=== PATIENT | male | born 1975 | race Caucasian/White ===

== ENCOUNTER 2016-06-20 20:33 | Emergency (ER) | payer BC ==
[2016-06-20 21:13] VITALS: BP 153/74
[2016-06-20] MEDS ORDERED: Albuterol HFA INHALER* 8 gm MDI INH ONE (21:38)
[2016-06-20] MEDS ORDERED: Clindamycin CAP* 150 MG PO ONE (21:39)
--- NOTE | 2016-06-20 21:40 | UC ---
UC Dental HPI - HPI Summary HPI Summary: 41 YO MALE WITH LEFT LOWER DENTAL PAIN HAS NEED TOOTH PULLED X MONTHS PAST FEW DAYS INCREASED PAIN AND NOW JAW SWOLLEN NO F/C NO HX HT MURMUR HAS APPT WITH DENTIST RECENTLY MOVE HERE FROM [place] NO PMD YET OUT OF MEDS - History of Current Complaint Chief Complaint: UCGeneralIllness Stated Complaint: ASTHMA & TOOTH PAIN Time Seen by Provider: 06/20/16 21:21 Hx Obtained From: Patient Onset/Duration: Sudden Onset, Lasting Days Pain Intensity: 6 Pain Scale Used: 0-10 Numeric Aggravating: Heat, Cold, Chewing Alleviating: OTC Meds Related History: Previous Dental Care on Same Tooth - Allergies/Home Medications Allergies/Adverse Reactions: Allergies Allergy/AdvReac Type Severity Reaction Status Date / Time Penicillins Allergy Rash Verified 06/20/16 21:04 Home Medications: Home Medications Albuterol HFA INHALER* [Ventolin HFA Inhaler*] 2 puff PRN 06/20/16 [History] Budesonide/Formote 160/4.5(NF) [Symbicort 160/4.5 (NF)] 2 puff INH BID 06/20/16 [History Confirmed 06/20/16] PMH/Surg Hx/FS Hx/Imm Hx Previously Healthy: Yes - PSORIASIS Respiratory History Of: Reports: Asthma - Surgical History Surgical History: None - Family History Known Family History: Positive: Hypertension - Social History Alcohol Use: None Substance Use Type: None Smoking Status (MU): Current Every Day Smoker Amount Used/How Often: 1 ppd Cessation Counseling: Patient Advised to Stop - Immunization History Most Recent Influenza Vaccination: None Most Recent Tetanus Shot: 2014 Most Recent Pneumonia Vaccination: n/a Review of Systems Constitutional: Negative Skin: Rash Eyes: Negative ENT: Dental Pain Respiratory: Cough - WHEEZE Cardiovascular: Negative Gastrointestinal: Negative Genitourinary: Negative Motor: Negative Neurovascular: Negative Musculoskeletal: Negative Neurological: Negative Psychological: Negative All Other Systems Reviewed And Are Negative: Yes Physical Exam Triage Information Reviewed: Yes Appearance: Well-Appearing, No Pain Distress, Well-Nourished Vital Signs: Initial Vital Signs Temp 98.2 F 06/20/16 21:07 Pulse 71 06/20/16 21:07 Resp 18 06/20/16 21:07 BP 153/74 06/20/16 21:07 Pulse Ox 99 06/20/16 21:07 Vital Signs Reviewed: Yes Eyes: Positive: Conjunctiva Clear ENT: Positive: Hearing grossly normal. Negative: Nasal congestion, Nasal drainage, Tonsillar exudate, Trismus, Muffled/hoarse voice Dental: Positive: Abscess @, Other: - SEE IMAGE Neck: Positive: Supple, Nontender, Enlarged Nodes @ Respiratory: Positive: Lungs clear, Normal breath sounds, No respiratory distress, No accessory muscle use Cardiovascular: Positive: RRR, No Murmur Musculoskeletal: Positive: ROM Intact, No Edema Neurological: Positive: Alert Psychological Exam: Normal Skin: Positive: rashes - PATCHES OF SILVER SCALE C/W PSORIASIS Dental Complaint Course/Dx - Differential Dx/Diagnosis Provider Diagnoses: DENTAL ABSCESS. HX OF ASTHMA. HX PSORIASIS. SMOKER Discharge - Discharge Plan Condition: Stable Disposition: HOME Prescriptions: Betamethasone Dip 0.05% ON(NF) [Betamethasone Dipr 0.05% OINT(NF)] 1 applic .SEE ORDER BID PRN #50 applic PRN Reason: Rash Budesonide/Formote 160/4.5(NF) [Symbicort 160/4.5 (NF)] 2 puff INH BID #1 mdi Clindamycin Cap(NF) [Cleocin 300 mg Cap(NF)] 300 mg PO QID #28 cap Patient Education Materials: Dental Abscess (ED), Psoriasis (ED) Additional Instructions: SEE LIST FOR LOCAL MDS SEE DENTIST PLANNED TO ER FOR WORSENING SYMPTOMS YOUR BP NEEDS TO BE FOLLOWED A LITTLE HIGH TODAY Images Head: 1 - SWOLLEN Dental: 1 - DENTAL FX/ABSCESS
== END 2016-06-20 21:58 | disposition home or self-care (01) ==
LOC: UCCORT 20:33
DX: K04.7 Periapical abscess without sinus (principal); J45.909 Unspecified asthma, uncomplicated; L40.9 Psoriasis, unspecified; Z88.0 Allergy status to penicillin; F17.210 Nicotine dependence, cigarettes, uncomplicated
CPT/HCPCS: 99202; A9270-GY; G0463

== ENCOUNTER 2017-01-09 20:26 | Emergency (ER) | payer BC ==
[2017-01-09 21:15] VITALS: BP 138/84
[2017-01-09] MEDS ORDERED: Albuterol/Ipratropium NEB.SOL* Albuterol 2.5 MG/Ipratropium 0.5 MG 3 ML INH ONE (21:35)
[2017-01-09] MEDS ORDERED: Azithromycin TAB* 250 MG PO ONE (22:29)
[2017-01-09] MEDS ORDERED: Albuterol HFA INHALER* 8 gm MDI INH ONE (22:30)
--- NOTE | 2017-01-09 22:45 | UC ---
Respiratory Complaint HPI - HPI Summary HPI Summary: 1) HISTORY OF ASTHMA, RECENTLY MOVED TO AREA AND HAS NO PRIMARY CARE ESTABLISHED IN THE AREA. WORKS IN [employer] [place]. LAST 4 WEEKS HAS HAD FLAREUPS OF ASTHMA. FOR THE LAST THREE DAYS HAS HAD PRODUCTIVE COUGH AND CONSTANT WHEEZING. NO FEVER. 2) HAS HISTORY OF PSORIASIS AND WOULD LIKE LOCAL DERM REFERRAL TO MANAGE & EVALUATE PSORIASIS. - History of Current Complaint Chief Complaint: UCRespiratory Stated Complaint: CONGESTION Time Seen by Provider: 01/09/17 21:12 Hx Obtained From: Patient, Family/Cloth Classer Onset/Duration: Sudden Onset, Lasting Days Timing: Intermittent Episodes Severity Initially: Mild Severity Currently: Moderate Character: Cough: Productive Aggravating Factors: Exertion, Deep Breaths Alleviating Factors: Bronchodilator Associated Signs And Symptoms: Positive: Wheezing, URI. Negative: Fever, Chills , Calf Pain, Calf Swelling - Risk Factors Pulmonary Embolism Risk Factors: Negative Cardiac Risk Factors: Negative Pseudomonas Risk Factors: Negative Tuberculosis Risk Factors: Negative - Allergies/Home Medications Allergies/Adverse Reactions: Allergies Allergy/AdvReac Type Severity Reaction Status Date / Time Penicillins Allergy Rash Verified 01/09/17 21:15 PMH/Surg Hx/FS Hx/Imm Hx Previously Healthy: Yes - Surgical History Surgical History: None - Family History Known Family History: Positive: Hypertension, Respiratory Disease - Social History Occupation: Employed Full-time Lives: With Family Alcohol Use: Occasionally Substance Use Type: None Smoking Status (MU): Current Every Day Smoker Type: Cigarettes Amount Used/How Often: 1 ppd Cessation Counseling: Patient Advised to Stop - Immunization History Most Recent Influenza Vaccination: None Most Recent Tetanus Shot: 2014 Most Recent Pneumonia Vaccination: n/a Review of Systems Constitutional: Negative Skin: Negative Eyes: Negative ENT: Negative Respiratory: Shortness Of Breath Cardiovascular: Negative Gastrointestinal: Negative Genitourinary: Negative Motor: Negative Neurovascular: Negative Musculoskeletal: Negative Neurological: Negative Psychological: Negative Is Patient Immunocompromised?: No All Other Systems Reviewed And Are Negative: Yes Physical Exam Triage Information Reviewed: Yes Appearance: Well-Appearing, No Pain Distress, Well-Nourished Vital Signs: Initial Vital Signs Temp 97.7 F 01/09/17 21:10 Pulse 65 01/09/17 21:10 Resp 16 01/09/17 21:10 BP 138/84 01/09/17 21:10 Pulse Ox 98 01/09/17 21:10 Vital Signs Reviewed: Yes Eye Exam: Normal ENT: Positive: Nasal congestion, TM bulging, TM dull Dental Exam: Normal Neck exam: Normal Neck: Positive: Supple, Nontender, No Lymphadenopathy Respiratory: Positive: Chest non-tender, No respiratory distress, Wheezing, Other: - CTA S/P DUONEB Cardiovascular Exam: Normal Cardiovascular: Positive: RRR, No Murmur, Pulses Normal, Brisk Capillary Refill Abdominal Exam: Normal Abdomen Description: Positive: Nontender Musculoskeletal Exam: Normal Musculoskeletal: Positive: Strength Intact, ROM Intact Neurological Exam: Normal Psychological Exam: Normal Skin Exam: Normal UC Diagnostic Evaluation - Laboratory O2 Sat by Pulse Oximetry: 98 - Radiology Radiology Interpretation Completed By: ED Physician - NO IMPRESSION OF ACUTE DISEASE Re-Evaluation - Re-Evaluation Second Eval Re-Evaluation Time: 21:50 Change: Improved Comment: CTA S/P DUONEB Respiratory Course/Dx - Differential Dx/Diagnosis Differential Diagnosis/HQI/PQRI: Asthma, Sinusitis Provider Diagnoses: SINUSITIS; ASTHMA EXACERBATION; PSORIASIS Discharge - Discharge Plan Condition: Stable Disposition: HOME Prescriptions: Albuterol HFA INHALER* [Ventolin HFA Inhaler*] 1 - 2 puff INH Q6H PRN #1 mdi PRN Reason: Wheezing Azithromycin TAB* [Zithromax TAB (Z-CHICHO) 250 mg #6 tabs] 250 mg PO DAILY #4 tab predniSONE TAB* [Deltasone TAB*] 60 mg PO DAILY #21 tab Patient Education Materials: Asthma (ED), Psoriasis (ED), Bronchospasm (ED) Referrals: [facility] [Outside] Gracie Landin [Medical Doctor] - No Primary Care Phys,NOPCP [Primary Care Provider] - Laz Brady MD [Medical Doctor] -
--- NOTE | 2017-01-10 07:42 | RAD ---
INDICATION: Cough. Wheezing. COMPARISON: None TECHNIQUE: PA and lateral dual-energy views were obtained. FINDINGS: Bones/Soft Tissues: There are no acute bony findings. Cardiomediastinal: The cardiomediastinal silhouette is normal. Lungs: There are no infiltrates. There is mild hyperinflation Pleura: There are no pleural effusions. Other: None IMPRESSION: Mild hyperinflation, otherwise negative..
== END 2017-01-09 22:44 | disposition home or self-care (01) ==
LOC: UCCORT 20:26
DX: L40.9 Psoriasis, unspecified (principal); Z88.0 Allergy status to penicillin; F17.210 Nicotine dependence, cigarettes, uncomplicated
CPT/HCPCS: 71020; 99213; A9270-GY; G0463

== ENCOUNTER 2017-02-06 12:03 | Emergency (ER) | payer BC ==
[2017-02-06 12:45] VITALS: BP 117/93
--- NOTE | 2017-02-06 13:53 | UC ---
Respiratory Complaint HPI - HPI Summary HPI Summary: Cough and congestion for a about 4 days. No fever. There is loss of voice. All symptoms are getting better. He says he lost his inhaler that he uses PRN with cough and URI and he is here for a refill and worknote. - History of Current Complaint Chief Complaint: UCRespiratory Stated Complaint: ST,COUGH Time Seen by Provider: 02/06/17 13:27 Hx Obtained From: Patient Onset/Duration: Gradual Onset, Lasting Days Timing: Constant Severity Initially: Moderate Severity Currently: Mild - He says he thinks he is getting Better. Character: Cough: Nonproductive Aggravating Factors: Deep Breaths, Recumbent Position Alleviating Factors: Nothing Associated Signs And Symptoms: Positive: URI, Nasal Congestion, Hoarseness. Negative: Dyspnea, Fever, Chills, Pleuritic Chest Pain - Allergies/Home Medications Allergies/Adverse Reactions: Allergies Allergy/AdvReac Type Severity Reaction Status Date / Time Penicillins Allergy Rash Verified 02/06/17 12:40 Home Medications: Home Medications NK [No Home Medications Reported] 02/06/17 [History Confirmed 02/06/17] PMH/Surg Hx/FS Hx/Imm Hx Previously Healthy: No - Reactive airway disease. - Surgical History Surgical History: None - Family History Known Family History: Positive: Hypertension, Respiratory Disease - Social History Occupation: Employed Full-time Lives: With Family Alcohol Use: Occasionally Substance Use Type: None Smoking Status (MU): Current Every Day Smoker Type: Cigarettes Amount Used/How Often: 1 ppd - Immunization History Most Recent Influenza Vaccination: None Most Recent Tetanus Shot: 2014 Most Recent Pneumonia Vaccination: n/a Review of Systems Respiratory: Cough All Other Systems Reviewed And Are Negative: Yes Physical Exam Triage Information Reviewed: Yes Appearance: Well-Appearing, No Pain Distress, Well-Nourished Vital Signs: Initial Vital Signs Temp 98.6 F 02/06/17 12:40 Pulse 92 02/06/17 12:40 Resp 14 02/06/17 12:40 BP 117/93 02/06/17 12:40 Pulse Ox 100 02/06/17 12:40 Vital Signs Reviewed: Yes Eye Exam: Normal Eyes: Positive: Conjunctiva Clear ENT: Positive: Normal ENT inspection, Pharyngeal erythema, Nasal congestion, TMs normal, Hoarse voice, Uvula midline. Negative: Nasal drainage, TM bulging, TM dull, TM red, Tonsillar swelling, Tonsillar exudate, Trismus, Muffled voice, Sinus tenderness Neck: Positive: Supple, Nontender, No Lymphadenopathy. Negative: Nuchal Rigidity Respiratory: Positive: Lungs clear, Normal breath sounds, No respiratory distress, No accessory muscle use. Negative: Respiratory distress, Decreased breath sounds, Accessory muscle use, Crackles, Rhonchi, Stridor, Wheezing Cardiovascular: Positive: RRR, No Murmur, Pulses Normal, Brisk Capillary Refill Abdomen Description: Positive: Nontender, No Organomegaly, Soft. Negative: Distended, Guarding Musculoskeletal: Positive: Strength Intact, ROM Intact, No Edema Neurological: Positive: Alert, Muscle Tone Normal. Negative: Fatigued Psychological: Positive: Age Appropriate Behavior Skin: Negative: rashes UC Diagnostic Evaluation - Laboratory O2 Sat by Pulse Oximetry: 100 Respiratory Course/Dx - Differential Dx/Diagnosis Provider Diagnoses: uri. laryngitis. Discharge - Discharge Plan Condition: Good Disposition: HOME Patient Education Materials: Laryngitis (ED), Upper Respiratory Infection (ED) Forms: *Work Release Referrals: No Primary Care Phys,NOPCP [Primary Care Provider] -
== END 2017-02-06 13:55 | disposition home or self-care (01) ==
LOC: UCCORT 12:03
DX: J06.9 Acute upper respiratory infection, unspecified (principal); Z88.0 Allergy status to penicillin; F17.210 Nicotine dependence, cigarettes, uncomplicated
CPT/HCPCS: 99211; G0463

== ENCOUNTER 2017-04-18 14:06 | Emergency (ER) | payer MEDICAID ==
[2017-04-18 18:28] VITALS: BP 147/84
--- NOTE | 2017-04-18 18:48 | ED ---
HPI Chest Pain - HPI Summary HPI Summary: 42 yr old male with chest pain tightness that was rather intense across his chest when shoveling snow this morning, and he became very sob with the episode lasting over an hour. He denied nausea, but stated he was sweaty. He has been out of his MDI for asthma for about three weeks. The patient reports that he is a smoker. He reports he has uncles who have of IN at a young age. He reports that now his chest tightness is mild, but remains short of breath. The patient does not have a primary care doctor. He recently relocated here from [place]. - History of Current Complaint Chief Complaint: UCRespiratory Time Seen by Provider: 04/18/17 18:16 Pain Intensity: 0 - Allergy/Home Medications Allergies/Adverse Reactions: Allergies Allergy/AdvReac Type Severity Reaction Status Date / Time Penicillins Allergy Rash Verified 04/18/17 18:12 Home Medications: Home Medications NK [No Home Medications Reported] 04/18/17 [History Confirmed 04/18/17] PMH/Surg Hx/FS Hx/Imm Hx Respiratory History: Reports: Hx Asthma Infectious Disease History: No Infectious Disease History: Denies: Traveled Outside the [place] in Last 30 Days - Family History Known Family History: Positive: Hypertension, Respiratory Disease - Social History Alcohol Use: None Substance Use Type: Reports: None Smoking Status (MU): Current Every Day Smoker Type: Cigarettes Amount Used/How Often: 1 ppd Review of Systems Positive: Chest Pain Positive: Shortness Of Breath All Other Systems Reviewed And Are Negative: Yes Physical Exam Triage Information Reviewed: Yes Vital Signs On Initial Exam: Initial Vitals Temp Pulse Resp BP Pulse Ox 98.4 F 79 18 147/84 99 04/18/17 18:13 04/18/17 18:13 04/18/17 18:13 04/18/17 18:13 04/18/17 18:13 Vital Signs Reviewed: Yes Appearance: Positive: Well-Appearing, No Pain Distress Skin: Positive: Warm, Skin Color Reflects Adequate Perfusion Head/Face: Positive: Normal Head/Face Inspection Eyes: Positive: EOMI Respiratory/Lung Sounds: Positive: Clear to Auscultation, Breath Sounds Present , Other - He does have a slight prolonged expiration, but no wheezes and he is able to speak full sentences and does not appear labored at all. Cardiovascular: Positive: RRR. Negative: Murmur Abdomen Description: Positive: Nontender Musculoskeletal: Positive: Strength/ROM Intact Neurological: Positive: Sensory/Motor Intact, Alert, Oriented to Person Place, Time, CN Intact II-III, Normal Gait, Speech Normal. Negative: Disoriented Diagnostics - Vital Signs Vital Signs Temp Pulse Resp BP Pulse Ox 04/18/17 18:13 98.4 F 79 18 147/84 99 - Laboratory Lab Statement: Any lab studies that have been ordered have been reviewed, and results considered in the medical decision making process. - EKG 04/18/17 Cardiac Rate: NL EKG Rhythm: Sinus Rhythm ST Segment: Normal Ectopy: None Chest Pain Course/Dx - Course Course Of Treatment: This patient is 42 yrs old, and had exertional CP with shoveling snow. He is a smoker and family history of CAD. The patient was offered an albuterol neb and also an ambulance ride to the hospital for further evaluation of his chest pain episode/SOB. I have explained the risk of heart attack, , disability. He refused the transfer to the ER and states he is not going to go at all. He only wanted a prescription for an albuterol MDI inhaler and to go home. He stated that if his symptoms didnt improve at home he would go to the ER. I explained in detail that part of his symptoms could be asthma, but given the fact that he had bad chest pain this morning with manual work, and was very short of breath, and remains having symptoms that he needs to be evaluated further where labs, more ekgs, imaging and further cardiac monitoring are available. He was given the AMA paperwork and refused to sign. He refused getting an albuterol Neb here while I offered to called for an ambulance. He refused treatment, and left the [facility] with his . - Diagnoses Provider Diagnoses: Chest pain, Hypertension, Shortness of breath Discharge - Discharge Plan Condition: Good Disposition: AGAINST MEDICAL ADVICE Referrals: No Primary Care Phys,NOPCP [Primary Care Provider] -
== END 2017-04-18 18:57 | disposition left against medical advice (07) ==
LOC: UCCORT 14:06
DX: R07.9 Chest pain, unspecified (principal); I10 Essential (primary) hypertension; R06.02 Shortness of breath; Z53.20 Procedure and treatment not carried out because of patient's decision for unspecified reasons; F17.210 Nicotine dependence, cigarettes, uncomplicated; Z82.49 Family history of ischemic heart disease and other diseases of the circulatory system; J45.909 Unspecified asthma, uncomplicated
CPT/HCPCS: 93005; 99212; G0463